=== PATIENT | male | born 1935 | race Caucasian/White ===

== ENCOUNTER 2021-04-18 23:56 | Emergency (ER) | payer MEDICARE, OTHER ==
[~2021-04-18] VITALS: Ht 180.3 cm; Wt 100.0 kg
[2021-04-19] MEDS ORDERED: LIDOCAINE (700MG/PATCH) PATCH. TD ONE (00:30)
[2021-04-19] MEDS ORDERED: ACETAMINOPHEN 500 MG TABLET PO ONE (00:30)
--- NOTE | 2021-04-19 01:31 | RAD ---
PQRS Compliance Statement: One or more of the following individualized dose reduction techniques were utilized for this examinat ion: 1. Automated exposure control 2. Adjustment of the mA and/or kV according to patient size 3. Use of iterative reconstruction technique CT head and cervical spine without contrast 04/19/2021 12:38 AM INDICATION: Fall, striking head COMPARISON: None available TECHNIQUE: Multiple axial CT images of the head were obtained from skull base through the vertex with out intravenous contrast. Multiple axial CT images of the cervical spine were obtained without intrav enous contrast. Coronal and sagittal reformats are provided. FINDINGS: Head: Ventricles, sulci and basal cisterns are prominent compatible with moderate generalized cerebral volu me loss. Low-attenuation in the periventricular white matter is suggestive of chronic small vessel is chemic changes. There is no hydrocephalus. Espinal-white matter differentiation is normal. There is no a cute intracranial hemorrhage. There is no mass, mass effect or midline shift. Posterior fossa is norm al in appearance. 5 Millimeter lipoma identified along the anterior falx. Visualized portions of the orbits are normal with exception of bilateral lens replacement. Paranasal sinuses are well aerated. Mastoid air cells are well aerated. Scalp and calvaria are normal. Cervical spine: 3 mm anterolisthesis of C3 on C4. There is 4 mm anterolisthesis of C4 on C5. Moderate to advanced dis c height loss at C5-C6 and C6-C7. 3 mm anterolisthesis of C7 on T1. Skull base is intact. Craniocervi vinnie junction is normal in appearance. Degenerative changes are identified at the atlantoaxial articul ation. Vertebral body heights are maintained without evidence for acute fracture. At C3-C4, there is a calcified central disc protrusion. Severe left and moderate right facet arthropa thy. Mild uncovertebral joint disease. Moderate severe left and moderate right neuroforaminal stenosi s. Mild to moderate osseous spinal canal stenosis. At C4-C5, there is a posterior disc osteophyte com plex. Moderate facet and uncovertebral joint disease. Severe left and moderate right neuroforaminal s tenosis. Mild spinal canal stenosis. At C5-C6, there is a posterior disc osteophyte complex with calcified right central disc extrusion. M ild to moderate facet arthropathy. Severe left and moderate to severe right uncovertebral joint disea se. Severe bilateral neuroforaminal stenosis. Mild spinal canal stenosis. At C6-C7, there is a talk show host ior discussed by complex asymmetric to the right. Mild facet arthropathy. Moderate uncovertebral join t disease. Moderate to severe right and moderate left neuroforaminal stenosis. Mild osseous spinal ca nal stenosis. There is no prevertebral soft tissue swelling. Thyroid gland is normal in appearance. Visualized port ions of the lung apices are normal without evidence for suspicious pulmonary nodule or infiltrate. Ca lcifications identified at the carotid bifurcations. IMPRESSION: 1. No acute intracranial hemorrhage. Moderate generalized cerebral volume loss. Low-attenuation in th e periventricular white matter is suggestive of chronic small vessel ischemic changes. 2. No acute fracture of the cervical spine. Moderate to advanced cervical spondylosis. Electronically signed by: Rosalinda Moran MD (04/19/2021 1:29 AM) [facility]
--- NOTE | 2021-04-19 01:37 | RAD ---
XR RIGHT HIP (WITH OR WITHOUT PELVIS) 2 VIEWS 04/19/2021 12:38 AM INDICATION: Fall, right hip pain COMPARISON: None available. TECHNIQUE: AP view the pelvis and 2 dedicated views the right hip provided. FINDINGS/ IMPRESSION: There is no acute fracture or dislocation. Right hip joint spaces are maintained. Moderate osteoarthr osis the left hip with joint space narrowing and marginal osteophytosis with subcortical sclerosis. B one mineralization is within normal limits. Regional soft tissues are within normal limits. There is no soft tissue gas or osseous erosion. No radiopaque foreign body. Vascular calcifications are presen t. Mild to moderate lumbar spondylosis. Post surgical changes are identified within the lower pelvis with bowel anastomosis. Electronically signed by: Rosalinda Moran MD (04/19/2021 1:35 AM) [facility]
--- NOTE | 2021-04-19 02:12 | PHYS DOC ---
Past History Past Surgical History: Cholecystectomy Alcohol Use: Occasionally Adult General Chief Complaint Chief Complaint: MECHANICAL FALL HPI HPI The patient is an 85-year-old male who resides in an assisted living setting and is on Xarelto. He presents for evaluation of a mechanical trip and fall occurring prior to arrival. Patient states he tripped over the cat and fell onto his right side, striking his right occipitoparietal scalp on the ground and also striking his right hip which is hurting him a little bit. Patient wanted to get up and walk around after the fall but EMS arrived right away and did not let him try. No therapy for symptoms prior to arrival. Mr. Haro is alert and oriented x4 and pleasantly and appropriately interactive and in no acute distress. Aside from discomfort to his right hip he states nothing hurts. He reports having been in his normal state of health earlier today. Vital signs are appropriate here. Review of Systems Review of Systems A 12 point review of systems was completed and was negative except where noted in HPI above. Current Medications Current Medications Current Medications Medications (Trade) Dose Ordered Sig/Yuni Start Time Stop Time Status Last Admin Dose Admin Acetaminophen (Tylenol) 1,000 mg 1X ONCE 04/19/21 00:30 04/19/21 00:31 DC 04/19/21 01:15 1,000 MG Lidocaine (Lidoderm) 1 patch 1X ONCE 04/19/21 00:30 04/19/21 00:31 DC 04/19/21 01:15 1 PATCH Allergies Allergies Allergies Coded Allergies Type Severity Reaction Last Updated Verified No Known Drug Allergies 04/18/21 No Physical Exam Physical Exam 85-year-old male appearing nontoxic and in no acute distress. Head is normocephalic and atraumatic. Neck is supple and nontender. Oropharynx is moist. Lungs are clear to auscultation at all stations. There is a normal S1 and S2 without rubs or gallops and capillary refill is appropriate, less than 2 seconds globally. Abdomen is soft, nontender and nondistended. Skin is warm and dry without cyanosis, clubbing or edema. Psychiatrically, the patient demonstrates appropriate mood and affect and is alert. Evaluation of the extremities reveals BUEs and BLEs neurovascularly intact distally with strength 5-5, sensation intact light touch in all nerve distributions, radial, DP and PT pulses 2+ equal bilaterally, capillary refill less than 2 seconds, hands and feet warm and well-perfused. No dependent peripheral edema distally. No calf tenderness or swelling bilaterally. Homans test is negative bilaterally. There is mild tenderness to palpation over the right greater trochanter without erythema, warmth, swelling or ecchymosis to the site. There is no discomfort with ranging of the right hip or of any other joint of the right lower extremity. Current Patient Data Vital Signs Vital Signs Date Time Temp Pulse Resp B/P (MAP) Pulse Ox O2 Delivery O2 Flow Rate FiO2 04/18/21 23:58 97.9 75 18 165/94 (117) 94 Room Air EKG EKG [] Radiology/Procedures Radiology/Procedures XR RIGHT HIP (WITH OR WITHOUT PELVIS) 2 VIEWS 04/19/2021 12:38 AM INDICATION: Fall, right hip pain COMPARISON: None available. TECHNIQUE: AP view the pelvis and 2 dedicated views the right hip provided. FINDINGS/ IMPRESSION: There is no acute fracture or dislocation. Right hip joint spaces are maintained. Moderate osteoarthrosis the left hip with joint space narrowing and marginal osteophytosis with subcortical sclerosis. Bone mineralization is within normal limits. Regional soft tissues are within normal limits. There is no soft tissue gas or osseous erosion. No radiopaque foreign body. Vascular calcifications are present. Mild to moderate lumbar spondylosis. Post surgical changes are identified within the lower pelvis with bowel anastomosis. Electronically signed by: Kenny Cason MD (04/19/2021 1:35 AM) [facility] DICTATED AND SIGNED BY: KENNY CASON MD DATE: 04/19/21 0134 CC: KAILASH RAMIREZ MD ~MTH0 0 CT head and cervical spine without contrast 04/19/2021 12:38 AM INDICATION: Fall, striking head COMPARISON: None available TECHNIQUE: Multiple axial CT images of the head were obtained from skull base through the vertex without intravenous contrast. Multiple axial CT images of the cervical spine were obtained without intravenous contrast. Coronal and sagittal reformats are provided. FINDINGS: Head: Ventricles, sulci and basal cisterns are prominent compatible with moderate generalized cerebral volume loss. Low-attenuation in the periventricular white matter is suggestive of chronic small vessel ischemic changes. There is no hydrocephalus. Espinal-white matter differentiation is normal. There is no acute intracranial hemorrhage. There is no mass, mass effect or midline shift. Posterior fossa is normal in appearance. 5 Millimeter lipoma identified along the anterior falx. Visualized portions of the orbits are normal with exception of bilateral lens replacement. Paranasal sinuses are well aerated. Mastoid air cells are well aerated. Scalp and calvaria are normal. Cervical spine: 3 mm anterolisthesis of C3 on C4. There is 4 mm anterolisthesis of C4 on C5. Moderate to advanced disc height loss at C5-C6 and C6-C7. 3 mm anterolisthesis of C7 on T1. Skull base is intact. Craniocervical junction is normal in appearance. Degenerative changes are identified at the atlantoaxial articulation. Vertebral body heights are maintained without evidence for acute fracture. At C3-C4, there is a calcified central disc protrusion. Severe left and moderate right facet arthropathy. Mild uncovertebral joint disease. Moderate severe left and moderate right neuroforaminal stenosis. Mild to moderate osseous spinal canal stenosis. At C4-C5, there is a posterior disc osteophyte complex. Moderate facet and uncovertebral joint disease. Severe left and moderate right neurof oraminal stenosis. Mild spinal canal stenosis. At C5-C6, there is a posterior disc osteophyte complex with calcified right cent ral disc extrusion. Mild to moderate facet arthropathy. Severe left and moderate to severe right uncovertebral joint disease. Severe bilateral neuroforaminal stenosis. Mild spinal canal stenosis. At C6-C7, there is a posterior discussed by complex asymmetric to the right. Mild facet arthropathy. Moderate uncovertebral joint disease. Moderate to severe right and moderate left neurof oraminal stenosis. Mild osseous spinal canal stenosis. There is no prevertebral soft tissue swelling. Thyroid gland is normal in appearance. Visualized portions of the lung apices are normal without evidence for suspicious pulmonary nodule or infiltrate. Calcifications identified at the carotid bifurcations. IMPRESSION: 1. No acute intracranial hemorrhage. Moderate generalized cerebral volume loss. Low-attenuation in the periventricular white matter is suggestive of chronic small vessel ischemic changes. 2. No acute fracture of the cervical spine. Moderate to advanced cervical spondylosis. Electronically signed by: Kenny Cason MD (04/19/2021 1:29 AM) [facility] DICTATED AND SIGNED BY: KENNY CASON MD DATE: 04/19/21 0121 CC: KAILASH RAMIREZ MD ~MTH0 0 Heart Score C/O Chest Pain: No Risk Factors: Risk Factors: DM, Current or recent (<one month) smoker, HTN, HLP, family history of CAD, obesity. Risk Scores: Risk Factors: DM, Current or recent (<one month) smoker, HTN, HLP, family history of CAD, obesity. Course & Med Decision Making Course & Med Decision Making Patient has been observed for multiple hours here in the emergency department without any change in neurologic condition. He remains alert and oriented x4, in absolutely no acute distress, moving all extremities equally. Imaging is without evidence of acute process. Right hip discomfort is controlled upon reassessment. Patient is ambulatory with a steady, careful gait here in the emergency department without significant difficulty. Given reassuring work-up in this well-appearing elderly gentleman, will discharge back to his assisted living facility at this time. Patient understands that if he feels worse instead of better or develops other new symptoms of concern that he should return to the emergency department right away for reevaluation. All questions are answered. Dragon Disclaimer Dragon Disclaimer This electronic medical record was generated, in whole or in part, using a voice recognition dictation system. Departure Departure: Impression: Primary Impression: Contusion of right hip, initial encounter Additional Impression: Fall on same level from tripping Disposition: 01 HOME / SELF CARE / HOMELESS Condition: IMPROVED Patient Instructions: Fall Prevention and Home Safety Additional Instructions: Follow-up very closely with your primary care doctor in the office in the next 2 to 4 days for a reevaluation of your symptoms and a discussion of next best steps in care. You may use Tylenol as needed for any discomfort. Rest, ice and elevate injured areas. Return to the emergency department right away for worsening symptoms of any kind or with any other new symptoms of concern. Problem Qualifiers KAILASH RAMIREZ MD Apr 19, 2021 02:12
[2021-04-19 02:16] VITALS: BP 154/75
== END 2021-04-19 02:19 | disposition home or self-care (01) ==
LOC: ER 23:56
DX: S70.01XA Contusion of right hip, initial encounter (principal); Z79.01 Long term (current) use of anticoagulants; W01.0XXA Fall on same level from slipping, tripping and stumbling without subsequent striking against object, initial encounter; Y93.89 Activity, other specified; Y92.89 Other specified places as the place of occurrence of the external cause; Y99.8 Other external cause status
CPT/HCPCS: 70450; 72125; 73502; 99284